=== PATIENT | male | born 1945 | race Caucasian/White ===

== ENCOUNTER 2017-01-26 20:37 | Observation (INO) ==
[2017-01-26 21:29] LABS: Basophils % 0.6 %; Eosinophils % 0.8 %; Hematocrit 42.7 % (37.5-50.1); Hemoglobin 13.5 g/dL (12.9-16.9); Immature Granulocytes % 0.2 % (0-4); Lymphocytes # 0.5 K/mcL (0.6-4.6); Lymphocytes % 10.1 %; Mean Corpuscular HGB Conc 31.6 g/dL (31.6-35.5); Mean Corpuscular Hemoglobin 27.1 pg (28.0-33.3); Mean Corpuscular Volume 85.7 fL (83.0-100.0); Mean Platelet Volume 11.6 fL (9.4-12.4); Monocytes # 0.7 K/mcL (0.0-1.3); Monocytes % 15.5 %; Neutrophils # 3.5 K/mcL (1.6-8.9); Platelet Count 113 K/mcL (140-400); Red Blood Count 4.98 M/mcL (4.19-5.50); Red Cell Distribution Width 15.3 % (11.5-14.5); Segmented Neutrophils % 72.8 %
[2017-01-26 21:39] LABS: INR 1.1; Prothrombin Time 12.3 Seconds (9.4-12.1)
[2017-01-26] MEDS ORDERED: Ipratropium/Albuterol Neb 3 ML IH ONE ×2 (21:44→23:13)
[2017-01-26 21:48] LABS: BUN/Creatinine Ratio 24 (6-26); Blood Urea Nitrogen 20 mg/dL (8-26); Calcium 8.2 mg/dL (8.6-10.8); Carbon Dioxide 18 mEq/L (19-29); Chloride 111 mEq/L (98-109); Glucose 100 mg/dL (70-99); Osmolality,Calculated 293 (280-300); Potassium 4.1 mEq/L (3.5-4.5); Sodium 140 mEq/L (136-145); eGFR For African Americans > 60 (> 60); eGFR For Non-African Americans > 60 (> 60)
--- NOTE | 2017-01-26 21:58 | Emergency Department Note ---
Disposition Clinical Impression: COPD (chronic obstructive pulmonary disease) Qualifiers: COPD type: COPD with acute lower respiratory infection Qualified Code(s): J44.0 - Chronic obstructive pulmonary disease with acute lower respiratory infection Pneumonia Qualifiers: Pneumonia type: due to unspecified organism Laterality: unspecified laterality Lung location: unspecified part of lung Qualified Code(s): J18.9 - Pneumonia, unspecified organism Disposition: Admitted As Inpatient Condition: Fair General Adult HPI - General Chief complaint: ED Weakness Stated complaint: LETHARGIC Time Seen by Provider: 01/26/17 21:44 Source: patient, EMS, other (jail staff report) Mode of arrival: EMS Limitations: other (MRDD) Nursing Notes Reviewed: Yes Vital Signs Reviewed: Yes - History of Present Illness HPI Narrative: Patient presents to the ED via EMS for evaluation of low oxygen saturations, report of low blood pressure and lethargy. He is a resident at [facility]. Per their initial report patient was lethargic earlier today with low oxygen levels and bravo ashen color with a low pressure. Per EMS vital signs were within normal limits with no hypotension. He had room air oxygen saturation of 95% was placed on oxygen. On arrival here patient states he has been not feeling well since around 11 AM. He was picked up from workshop by staff and taken back to his residence. Staff member states that he has been generally weak and lethargic this evening and did not eat dinner. Patient also report some shortness of breath with ambulation today. He has a dry cough as well as rhinorrhea and congestion. Per staff there have been several sick residents with similar flulike symptoms. Patient does have a history of COPD. He denies any chest pain or abdominal pain. No nausea, vomiting, diarrhea or constipation. No fever or chills. Pain Scale: 0 - Related Data Home Medications Medication Instructions Recorded Confirmed Atorvastatin 20 mg PO HS 01/23/16 01/26/17 Docusate Sodium 100 mg PO BID 01/23/16 01/26/17 Fexofenadine HCl 180 mg PO DAILY 01/23/16 01/26/17 Finasteride 5 mg PO DAILY 01/23/16 01/26/17 Montelukast Sodium 10 mg PO HS 01/23/16 01/26/17 Natural Fiber Lax Powder 5 gm PO DAILY 01/23/16 01/26/17 Omeprazole 20 mg PO QMWF 01/23/16 01/26/17 Oyster Shell Calcium + D Cplt 500 mg PO TID 01/23/16 01/26/17 Perforomist 20 mcg IH QAM 01/23/16 01/26/17 Pulmicort Flexhaler 90mcg 1 mg IH HS 01/23/16 01/26/17 Spiriva 18 mcg IH DAILY 01/23/16 01/26/17 Tamsulosin HCl 0.4 mg PO HS 01/23/16 01/26/17 Topiramate 25 mg PO BID 01/23/16 01/26/17 Travatan Z 1 drop BOTH EYES HS 01/23/16 06/10/16 Previous Rx's Medication Instructions Recorded Ibuprofen [Motrin] 600 mg PO Q8HR PRN #30 tab 06/10/16 Allergies Allergy/AdvReac Type Severity Reaction Status Date / Time Penicillins [PCN] Allergy Hives Verified 01/26/17 20:51 tuberculin, purified protein Allergy Hives Verified 01/26/17 20:51 deriva [From Aplisol] Constitutional: Reports: weakness (generalized). Denies: fever, chills, weight change Eyes: Denies: eye pain, eye discharge, vision change ENT ED: Reports: congestion. Denies: ear pain, throat pain, dental pain, hearing loss, epistaxis, dysphagia Cardiovascular: Denies: chest pain, palpitations, dyspnea on exertion, edema, syncope Respiratory: Reports: cough, dyspnea. Denies: wheezes, hemoptysis, stridor, sputum production Gastrointestinal: Denies: abdominal pain, nausea, vomiting, diarrhea, constipation, hematemesis, melena, hematochezia Genitourinary: Denies: urgency, dysuria, frequency, hematuria Musculoskeletal: Denies: back pain, neck pain, arthralgia, myalgia Integumentary: Denies: rash, abrasion, lesions Neurological: Denies: headache, weakness, numbness, paresthesias, confusion, abnormal gait, vertigo Psychiatric: Denies: anxiety, depression, suicidal thoughts, homicidal thoughts , auditory hallucinations, visual hallucinations Endocrine: Denies: fatigue Hematological/Lymphatic: Denies: easy bleeding, easy bruising Allergic/Immunologic: Denies: facial swelling, urticaria Past Medical History - Past Medical History Medical history: Reports: COPD, GERD, hyperlipidemia, migraine, other Psychiatric history: Reports: no psych history - Social History Smoking Status: Never smoker Smokeless Tobacco Status: No Alcohol use: Reports: none Drug use: Reports: none Physical Exam - General Limitations: no limitations General appearance: alert, in no apparent distress - Head Head exam: atraumatic, normocephalic, normal inspection - Eye Eye exam: Present: normal appearance, PERRL, EOMI - ENT ENT exam: normal exam, normal oropharynx - Expanded ENT Exam Nose exam: rhinorrhea (clear) Throat exam: Present: normal inspection. Absent: tonsillar erythema, tonsillomegaly - Neck Neck exam: Present: normal inspection, full ROM, trachea midline. Absent: lymphadenopathy - Chest Chest inspection: Present: normal inspection, symmetric chest wall rise - Respiratory Respiratory exam: Absent: accessory muscle use - Expanded Respiratory Exam Location: wheezes: Left, Right, Upper, Lower (scattered), rhonchi: Left, Right, Upper, Lower (scattered) - Cardiovascular Cardiovascular exam: Present: regular rate, normal rhythm, normal heart sounds - Abdominal Exam Abdominal exam: Present: soft, Non-Tender. Absent: tenderness, distention, guarding, rebound, rigidity - Extremities Exam Extremities exam: Present: normal inspection, full ROM. Absent: tenderness, pedal edema - Back Exam Back exam: Present: normal inspection, full ROM. Absent: tenderness - Neurological Exam Neurological exam: Present: alert, oriented X3 - Psychiatric Psychiatric exam: Present: normal affect, normal mood - Skin Skin exam: Present: warm, dry, intact, pallor Course Course Narrative: Presents to the ED with 1 day of generalized fatigue, malaise, nonproductive cough and low oxygen saturations. On arrival here he is hemodynamically stable with no hypotension or fever. He was taken off oxygen briefly and did have a desaturation into the low 90s. Chest x-ray and laboratory studies were obtained to evaluate for pneumonia versus influenza or other upper respiratory illness. He was given a nebulizer treatment due to his rhonchi and wheezing. Chest x-ray shows a nonspecific retrocardiac opacity that could possibly be pneumonia. No other abnormalities were found. Laboratory studies showed no leukocytosis and normal lactic acid level.. Flu swab was negative. He did continue to have recurrent cough in the ED. Findings are concerning for possibility of COPD exacerbation with underlying pneumonia. Discussed with patient and caregiver that he should be admitted for continued nebulizer treatments and IV antibiotics and they are in agreement. I spoke to the hospitalist director of content and programming, Dr. Dejesus, who agreed to accept the patient. He was started on IV antibiotics in the ED. Vital Signs Temperature 98.8 F 01/26/17 20:39 Pulse Rate 92 01/26/17 20:39 Respiratory Rate 20 01/26/17 20:39 Blood Pressure 124/83 01/26/17 20:39 O2 Sat by Pulse Oximetry 95 01/26/17 20:39 Temperature 99.4 F 01/27/17 00:14 Pulse Rate 110 01/27/17 00:14 Respiratory Rate 20 01/27/17 00:14 Blood Pressure 109/70 01/27/17 00:14 O2 Sat by Pulse Oximetry 93 L 01/27/17 00:14 Oxygen Delivery Oxygen Delivery Nasal Cannula Medical Decision Making - Differential Diagnosis COPD exacerbation, pneumonia, influenza, viral illness, URI - Medical Records Medical records reviewed: Yes I reviewed the patient's medical records. - Lab Data Lab results reviewed: Yes I reviewed the patient's lab results. Result diagrams: 01/26/17 21:20 01/26/17 21:20 Lab Results 01/26/17 01/26/17 01/26/17 Range/Units 21:20 21:20 21:20 WBC 4.8 (4.3-11.1) K/mcL RBC 4.98 (4.19-5.50) M/mcL Hgb 13.5 (12.9-16.9) g/dL Hct 42.7 (37.5-50.1) % MCV 85.7 (83.0-100.0) fL MCH 27.1 L (28.0-33.3) pg MCHC 31.6 (31.6-35.5) g/dL RDW 15.3 H (11.5-14.5) % Plt Count 113 L (140-400) K/mcL MPV 11.6 (9.4-12.4) fL Immature Gran % 0.2 (0-4) % Seg Neutrophils % 72.8 % Lymphocytes % 10.1 % Monocytes % 15.5 % Eosinophils % 0.8 % Basophils % 0.6 % Neutrophils # 3.5 (1.6-8.9) K/mcL Lymphocytes # 0.5 L (0.6-4.6) K/mcL Monocytes # 0.7 (0.0-1.3) K/mcL Eosinophils # 0.0 (0.0-0.6) K/mcL Basophils # 0.0 (0.0-0.2) K/mcL PT (9.4-12.1) Seconds INR VBG Lactic Acid 1.2 (0.5-2.2) mmol/L Sodium 140 (136-145) mEq/L Potassium 4.1 (3.5-4.5) mEq/L Chloride 111 H (98-109) mEq/L Carbon Dioxide 18 L (19-29) mEq/L BUN 20 (8-26) mg/dL Creatinine 0.85 (0.72-1.25) mg/dL Est GFR ( Amer) > 60 (> 60) Est GFR (Non-Af Amer) > 60 (> 60) BUN/Creatinine Ratio 24 (6-26) Glucose 100 H (70-99) mg/dL Calculated Osmolality 293 (280-300) Calcium 8.2 L (8.6-10.8) mg/dL 01/26/17 Range/Units 21:20 WBC (4.3-11.1) K/mcL RBC (4.19-5.50) M/mcL Hgb (12.9-16.9) g/dL Hct (37.5-50.1) % MCV (83.0-100.0) fL MCH (28.0-33.3) pg MCHC (31.6-35.5) g/dL RDW (11.5-14.5) % Plt Count (140-400) K/mcL MPV (9.4-12.4) fL Immature Gran % (0-4) % Seg Neutrophils % % Lymphocytes % % Monocytes % % Eosinophils % % Basophils % % Neutrophils # (1.6-8.9) K/mcL Lymphocytes # (0.6-4.6) K/mcL Monocytes # (0.0-1.3) K/mcL Eosinophils # (0.0-0.6) K/mcL Basophils # (0.0-0.2) K/mcL PT 12.3 H (9.4-12.1) Seconds INR 1.1 VBG Lactic Acid (0.5-2.2) mmol/L Sodium (136-145) mEq/L Potassium (3.5-4.5) mEq/L Chloride (98-109) mEq/L Carbon Dioxide (19-29) mEq/L BUN (8-26) mg/dL Creatinine (0.72-1.25) mg/dL Est GFR ( Amer) (> 60) Est GFR (Non-Af Amer) (> 60) BUN/Creatinine Ratio (6-26) Glucose (70-99) mg/dL Calculated Osmolality (280-300) Calcium (8.6-10.8) mg/dL - Radiology Data Radiology results reviewed: Yes I reviewed the patient's radiology results. ITS Impressions Chest X-Ray 01/26/17 20:53 IMPRESSION: 1. Nonspecific retrocardiac opacification. 2. No acute abnormality identified in the right lung. D/ / Bin Acevedo MD / Bin Acevedo MD Interpreting Provider: Bin Acevedo MD - EKG Data EKG #1 EKG shows normal: sinus rhythm Rate: normal Rhythm: NSR [place]/QRS: normal When compared to previous EKG there are: previous EKG unavailable Interpretation: no acute changes, normal EKG
[2017-01-26] MEDS ORDERED: Levofloxacin 500 MG/100 ML 500 MG/100 ML BAG IVPB ONE (22:48)
[2017-01-26] MEDS ORDERED: 0.9 % Sodium Chloride 1,000 ML IVC SCH (23:00)
[2017-01-26] MEDS ORDERED: Naloxone 0.4 MG/ML INJ IVP PRN (23:10)
[2017-01-26] MEDS ORDERED: Ipratropium/Albuterol Neb 3 ML IH SCH (23:15)
[2017-01-27] MEDS ORDERED: Ibuprofen 600 MG TABLET PO PRN (01:06)
[2017-01-27] MEDS ORDERED: Naloxone 0.4 MG/ML INJ IVP PRN (01:06)
[2017-01-27] MEDS: Ipratropium/Albuterol Neb 3 ML IH SCH ×3 (04:04→13:47)
[2017-01-27] MEDS: 0.9 % Sodium Chloride 1,000 ML IVC SCH ×2 (06:56→11:25)
[2017-01-27] MEDS ORDERED: Finasteride 5 MG TABLET PO SCH (09:00)
[2017-01-27] MEDS ORDERED: Psyllium 1 PACKET POWD.PACK PO SCH (09:00)
[2017-01-27] MEDS ORDERED: Topiramate 25 MG TABLET PO SCH (09:00)
[2017-01-27] MEDS ORDERED: Loratadine 10 MG TABLET PO SCH (09:00)
[2017-01-27] MEDS ORDERED: 0.9 % Sodium Chloride 1,000 ML IVC SCH (09:30)
[2017-01-27] MEDS ORDERED: Tiotropium 18 MCG inhalation IH SCH (10:00)
[2017-01-27] MEDS: [UNRECOGNIZED DRUG - OTHER] PO SCH ×2 (11:24→16:00)
[2017-01-27] MEDS: OYSTER SHELL CALCIUM PO SCH ×2 (11:24→16:00)
--- NOTE | 2017-01-27 14:03 | Internal Med History&Physical ---
Date of Encounter: 01/27/17 Time of Encounter: 12:15 Assessment and Plan (1) Dyspnea Current visit: Yes Status: Acute Now resolved. Etiology uncertain. Does not clinically have pneumonia. We will check room air oximetry on 6 minute walk. Qualifiers: Dyspnea type: shortness of breath Qualified Code(s): R06.02 - Shortness of breath Internal Medicine - H&P: HPI Chief complaint: Dyspnea and hypoxemia Admitted From: Home Plans for Post Hospital Care: Home History of present illness: Mr. Vaughn is a 71 year old male who was brought to the emergency room after staff at the halfway reported him to have low blood pressure with lethargy. When the squad arrived room-air oximetry saturations were reported to be 95% per emergency room records. He was evaluated in emergency room and felt to have exacerbation of COPD with possible pneumonia. He was admitted to med surg floor for ongoing care needs. He denies pain or dyspnea at the present time. He states he feels back to his baseline. He reports he is a lifelong nonsmoker. Available records show a diagnosis of COPD and home medication list shows multiple respiratory medications used. Past Med Surg Social Fam HX - Past Medical History Medical history: COPD, GERD, hyperlipidemia, migraine, other Psychiatric history: no psych history - Social History Smoking Status: Never smoker Smokeless Tobacco Status: No Alcohol use: none Drug use: none Internal Medicine - H&P: Meds Atorvastatin 20 mg PO HS 01/23/16 [History] Docusate Sodium 100 mg PO BID 01/23/16 [History] Fexofenadine HCl 180 mg PO DAILY 01/23/16 [History] Finasteride 5 mg PO DAILY 01/23/16 [History] Montelukast Sodium 10 mg PO HS 01/23/16 [History] Natural Fiber Lax Powder 5 gm PO DAILY 01/23/16 [History] Omeprazole 20 mg PO QMWF 01/23/16 [History] Oyster Shell Calcium + D Cplt 500 mg PO TID 01/23/16 [History] Perforomist 20 mcg IH QAM 01/23/16 [History] Pulmicort Flexhaler 90mcg 1 mg IH HS 01/23/16 [History] Spiriva 18 mcg IH DAILY 01/23/16 [History] Tamsulosin HCl 0.4 mg PO HS 01/23/16 [History] Topiramate 25 mg PO BID 01/23/16 [History] Travatan Z 1 drop BOTH EYES HS 01/23/16 [History] Ibuprofen [Motrin] 600 mg PO Q8HR PRN #30 tab 06/10/16 [Rx] Allergies Penicillins [PCN] Allergy (Verified 01/26/17 20:51) Hives tuberculin, purified protein deriva [From Aplisol] Allergy (Verified 01/26/17 20 :51) Hives All Systems PM: A 10-system review of systems was performed and is negative for pertinent findings except as documented above in the HPI. Review of systems: General: States his weight has been stable the past few months Cardiovascular: He denies hypertension [place] heart failure angina DVT or pulmonary embolus Respiratory: As per history of present illness GI: He denies disorders of his liver gallbladder or exocrine pancreas : He has presumed BPH. He denies other kidney or bladder disorders Neurologic: He denies large distribution strokes or seizures Endocrine: He has history of hyperlipidemia but denies diabetes or thyroid disease Hematology/oncology: He reports he has a diagnosis of leukemia but I could not confirm this from available records. Denies other malignancies or blood disorders Psychiatric: He states he has anxiety but denies other mental health issues Musk skeletal: Denies arthritis gout other bone joint or muscle disorders. - Constitutional Vitals: Temp Pulse Resp BP Pulse Ox 98.5 F 88 18 107/67 95 01/27/17 11:12 01/27/17 11:12 01/27/17 13:48 01/27/17 11:12 01/27/17 13:48 Exam: Gen.: He is a well-developed well-nourished male who appears in minimal distress at present time HEENT: Head is atraumatic and normoocephalic. Eyes: EOMI. There is no scleral icterus. Mouth: Mucosa is moist. Neck: Supple and nontender. There is no thyromegaly or adenopathy noted. Heart: Regular without murmurs gallops or ectopics. Lungs: No wheezes or crackles are heard. Abdomen: Soft and nontender. No masses or guarding noted. Extremities: There is no cyanosis edema or clubbing noted. Dorsalis pedis and posttibial pulses are trace palpable bilaterally. Neurologic: Mental status: He is talkative and a fair historian. He has a speech impediment and it is difficult to understand him. Cranial nerves: Smile is symmetric. Forehead wrinkles bilaterally. Tongue protrudes midline. EOMI. Motor: There is no pronator drift. Cerebellar: Finger to nose is intact bilaterally. Skin: Warm and dry Internal Med - H&P Results - Labs CBC & Chem 7: 01/26/17 21:20 01/26/17 21:20 - VTE Reasons for not Prescribing Prophylaxis: Treatment not Indicated - Low risk for VTE
[2017-01-27 14:10] VITALS: BP 106/58
--- NOTE | 2017-01-27 15:38 | Discharge Summary ---
Date of Encounter: 01/27/17 Time of Encounter: 15:35 - Discharge Diagnosis (1) Dyspnea Priority: Primary Status: Resolved Qualifiers: Dyspnea type: shortness of breath Qualified Code(s): R06.02 - Shortness of breath - Discharge Medications Home Medications: Atorvastatin 20 mg PO HS 01/23/16 [History] Docusate Sodium 100 mg PO BID 01/23/16 [History] Finasteride 5 mg PO DAILY 01/23/16 [History] Montelukast Sodium 10 mg PO HS 01/23/16 [History] Natural Fiber Lax Powder 5 gm PO DAILY 01/23/16 [History] Omeprazole 20 mg PO QMWF 01/23/16 [History] Oyster Shell Calcium + D Cplt 500 mg PO TID 01/23/16 [History] Perforomist 20 mcg IH QAM 01/23/16 [History] Pulmicort Flexhaler 90mcg 1 mg IH HS 01/23/16 [History] Spiriva 18 mcg IH DAILY 01/23/16 [History] Tamsulosin HCl 0.4 mg PO HS 01/23/16 [History] Topiramate 25 mg PO BID 01/23/16 [History] Travatan Z 1 drop BOTH EYES HS 01/23/16 [History] Ibuprofen [Motrin] 600 mg PO Q8HR PRN #30 tab 06/10/16 [Rx] Fexofenadine HCl 180 mg PO DAILY PRN #0 01/27/17 [Rx] Allergies/Adverse Reactions: Allergies Penicillins [PCN] Allergy (Verified 01/26/17 20:51) Hives tuberculin, purified protein deriva [From Aplisol] Allergy (Verified 01/26/17 20 :51) Hives Date of admission: 01/26/17 23:19 Primary care physician: Roosevelt Gonzalez MD - Patient Status Disposition: Home, Self-Care Condition: Fair Overall status at discharge: patient is progressing back to baseline - Discharge Instructions Follow Up With: Roosevelt Gonzalez MD [Primary Care Provider] - - Diet and Activity Activity: resume usual activities as tolerated Diet: advance to your usual diet Hospital course: Mr. Vaughn is a 71 year old male who was brought to the emergency room after staff at the longterm reported him to have low blood pressure with lethargy. When the squad arrived room-air oximetry saturations were reported to be 95% per emergency room records. He was evaluated in emergency room and felt to have exacerbation of COPD with possible pneumonia. He was admitted to [facility] floor for ongoing care needs. Initial orders were written by the emergency room physician. I saw him on January 27 performed history and physical. He was given a dose of Levaquin through emergency room. He stated his dyspnea had resolved and he felt back to baseline when I saw him. He did not have clinical evidence of pneumonia on my examination or laboratory findings. Room air oximetry on 6 minute walk showed adequate oxygenation without the need for supplemental oxygen. He wished to be discharged back to his longterm which I felt was reasonable. I will not give him additional antibiotics at this time. - Time Spent with Patient Total time spent providing and/or coordinating discharge services: - Constitutional Vitals: Temp Pulse Resp BP Pulse Ox 98.0 F 76 16 106/58 94 L 01/27/17 14:09 01/27/17 14:09 01/27/17 14:09 01/27/17 14:09 01/27/17 15:04 - VTE Reasons for not Prescribing Prophylaxis: Treatment not Indicated - Low risk for VTE
--- NOTE | 2017-01-27 16:40 | Electrocardiograph Report ---
[address] [place] [address] Test Date: 2017-01-26 Pat Name: Gabriel Vaughn Department: [id number] Room: [facility] Gender: M Head Of Digital: : 1945 Requested By: Ansley Christianson Order Number: [id number] Reading MD: Akosua Sanders Measurements Intervals [place] Rate: 90 P: 26 [place]: 132 QRS: -13 QRSD: 106 T: 13 QT: 358 QTc: 405 Interpretive Statements SINUS RHYTHM INFERIOR MYOCARDIAL INFARCTION, PROBABLY OLD Electronically Signed On 01-27-2017 16:38:51 EDT by Akosua Sanders
[2017-01-27] MEDS ORDERED: Beclomethasone 80mcg MDI IH SCH (21:00)
== END 2017-01-27 18:24 | disposition home or self-care (01) ==
LOC: INPPIK 20:37 → EMEROOPIK 20:37 → INPPIK 23:27
PROVIDERS: ADMIT Internal Medicine; ATTEND Internal Medicine